=== PATIENT | female | born 2000 | race Hispanic/Latino ===

== ENCOUNTER → 2024-04-05 | Outpatient (CLI) | payer BC ==
--- NOTE | 2024-04-05 12:25 | HMCIMG ---
US BREAST COMPLETE UNILATERAL REASON: UN[facility] COMPARISON: None TECHNIQUE: Left breast ultrasound was performed with particular attention to palpable abnormality 12:00 position. FINDINGS: There is a 1.2 cm well-circumscribed cyst corresponding with the palpable abnormality. There is otherwise normal appearing breast parenchyma. There are no focal masses. There is no architectural distortion or acoustical shadowing. There are normal-appearing lymph nodes in the axilla. IMPRESSION: 1. 12 mm cyst in the 12:00 position, corresponding with the palpable abnormality. 2. Otherwise unremarkable left breast ultrasound.
== END | disposition home or self-care (01) ==
LOC: RAH 11:07
PROVIDERS: ATTEND Internal Medicine
DX: N60.02 Solitary cyst of left breast (principal); N63.22 Unspecified lump in the left breast, upper inner quadrant
CPT/HCPCS: 76641